=== PATIENT | male | born 1955 | race Caucasian/White ===

== ENCOUNTER 2019-04-13 09:21 | Day surgery (SDC) | payer BC ==
[2019-04-06 17:57] VITALS: BMI 27.7
[2019-04-13 10:58] VITALS: TEMP 98.2
[2019-04-13 11:54] VITALS: BP 129/81; PULSE 76
== END 2019-04-13 11:45 | disposition home or self-care (01) ==
LOC: FASU-ENDO 09:21
PROVIDERS: ATTEND Internal Medicine Gastroenterology
PROC: 0DJD8ZZ Inspection of Lower Intestinal Tract, Via Natural or Artificial Opening Endoscopic (ICD-10-PCS; principal; 2019-04-13 10:28)
DX: Z86.010 Personal history of colon polyps (principal); Z80.0 Family history of malignant neoplasm of digestive organs; K57.30 Diverticulosis of large intestine without perforation or abscess without bleeding

== ENCOUNTER 2020-08-11 10:09 | Emergency (ER) | payer BC | END 2020-08-11 10:40 | disposition home or self-care (01) | LOC: JVIRT 10:09 | DX: Z03.818 Encounter for observation for suspected exposure to other biological agents ruled out (principal) | CPT/HCPCS: C9803; G2012-GT; U0003 ==

== ENCOUNTER 2025-02-15 08:32 | Day surgery (SDC) | payer OTHER, BC ==
[2025-02-12 09:34] VITALS: BMI 27.4
[2025-02-15 10:58] VITALS: TEMP 97.6
[2025-02-15 11:03] VITALS: BP 112/70; PULSE 76; RESP 19
== END 2025-02-15 11:05 | disposition home or self-care (01) ==
LOC: FASU-ENDO 08:32
PROVIDERS: ATTEND Internal Medicine Gastroenterology
PROC: 0DBL8ZZ Excision of Transverse Colon, Via Natural or Artificial Opening Endoscopic (ICD-10-PCS; 2025-02-15)
PROC: 0DBH8ZZ Excision of Cecum, Via Natural or Artificial Opening Endoscopic (ICD-10-PCS; 2025-02-15)
PROC: 0DBK8ZZ Excision of Ascending Colon, Via Natural or Artificial Opening Endoscopic (ICD-10-PCS; principal; 2025-02-15 09:33)
DX: Z12.11 Encounter for screening for malignant neoplasm of colon (principal); D12.2 Benign neoplasm of ascending colon; K63.5 Polyp of colon; K57.30 Diverticulosis of large intestine without perforation or abscess without bleeding; Z80.0 Family history of malignant neoplasm of digestive organs
CPT/HCPCS: 88304-TC; 88305-TC